=== PATIENT | female | born 1990 | race Caucasian/White ===

== ENCOUNTER 2021-03-22 20:52 | Emergency (ER) | payer OTHER ==
--- NOTE | 2021-03-22 22:51 | EDM.PDOC ---
ED HPI GENERAL MEDICAL PROBLEM - General Chief Complaint: SHORT HAUL DRIVER Problem Stated Complaint: BLEEDING Time Seen by Provider: 03/22/21 21:25 Source of Information: Reports: Patient History Limitations: Reports: No Limitations - History of Present Illness INITIAL COMMENTS - FREE TEXT/NARRATIVE: Patient presented to the ED because of vaginal bleeding which started 3 days ago. She is passing out clots and heavy menses like bleeding. There is no dizziness. she has a miscarriage in October/November this year. There is no abdominal cramping or urinary symptoms. 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: Immunologic History: Reports: None Dermatologic History: Reports: Eczema - Infectious Disease History Infectious Disease History: Reports: Chicken Pox - Past Surgical History HEENT Surgical History: Reports: Oral Surgery Social & Family History - Family History Family Medical History: No Pertinent Family History - Tobacco Use Tobacco Use Status *Q: Unknown Ever Used Tobacco - Caffeine Use Caffeine Use: Reports: Soda Other Caffeine Use: MINIMAL ED ROS GENERAL - Review of Systems Review Of Systems: See Below Constitutional: Reports: No Symptoms HEENT: Reports: No Symptoms Respiratory: Reports: No Symptoms Cardiovascular: Reports: No Symptoms Endocrine: Reports: No Symptoms GI/Abdominal: Reports: No Symptoms : Reports: No Symptoms Musculoskeletal: Reports: No Symptoms Skin: Reports: No Symptoms Neurological: Reports: No Symptoms Psychiatric: Reports: No Symptoms ED EXAM, GENERAL - Physical Exam Exam: See Below Exam Limited By: No Limitations General Appearance: Alert, No Apparent Distress Ears: Normal External Exam, Normal Canal, Hearing Grossly Normal Nose: Normal Inspection, Normal Mucosa, No Blood Throat/Mouth: Normal Inspection, Normal Lips, Normal Teeth Head: Atraumatic, Normocephalic Neck: Normal Inspection, Supple, Non-Tender, Full Range of Motion Respiratory/Chest: No Respiratory Distress, Lungs Clear, Normal Breath Sounds Cardiovascular: Normal Peripheral Pulses, Regular Rate, Rhythm, No Edema GI/Abdominal: Normal Bowel Sounds, Soft, Non-Tender, No Organomegaly Back Exam: Normal Inspection, Full Range of Motion Extremities: Normal Inspection, Normal Range of Motion, Non-Tender Neurological: Alert, Oriented, CN II-XII Intact Psychiatric: Normal Affect Course - Vital Signs Text/Narrative:: Carboprost 250 mcg IM x1 Tranexamic acid 1gm IV not 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 Last Recorded V/S: Last Vital Signs Temp 36.4 C 03/22/21 23:30 Pulse 79 03/23/21 01:00 Resp 18 03/23/21 01:00 BP 133/90 03/23/21 01:00 Pulse Ox 99 03/23/21 01:00 - Orders/Labs/Meds Orders: Active Orders 24 hr Category Date Time Status Saline Lock Insert [OM.PC] Routine Oth 03/22/21 22:52 Ordered Labs: Laboratory Tests 03/22/21 03/22/21 Range/Units 21:30 21:30 WBC 6.9 (3.0-10.3) x10-3/uL RBC 4.44 (3.60-5.20) x10(6)uL Hgb 13.6 (11.4-15.5) g/dL Hct 40.2 (34.2-48.2) % MCV 90.6 (76.7-100.5) fL MCH 30.7 (23.9-33.9) pg MCHC 33.9 (31.9-34.8) g/dL RDW 12.3 (12.3-16.5) % Plt Count 213 (151-488) x10(3)uL MPV 8.6 (7.1-12.4) fL Neut % (Auto) 48.0 (30.8-76.2) % Lymph % (Auto) 42.2 (18.4-52.1) % [place] % (Auto) 7.5 (4.4-15.7) % Eos % (Auto) 2.2 (0.6-8.1) % Baso % (Auto) 0.1 L (0.2-1.5) % Neut # (Auto) 3.3 (1.5-6.3) x10-3/uL Lymph # (Auto) 2.9 (1.0-4.4) x10-3/uL [place] # (Auto) 0.5 (0.3-1.0) x10-3/uL Eos # (Auto) 0.1 (0.0-0.8) x10-3/uL Baso # (Auto) 0.0 (0.0-0.1) x10-3/uL HCG, Quant 3903 (<5) mIU/mL Meds: Medications Discontinued Medications Generic Name Dose Route Start Last Admin Trade Name Freq PRN Reason Stop Dose Admin Carboprost Tromethamine 250 mcg 03/23/21 00:18 03/23/21 00:24 Carboprost Tromethamine 250 Mcg/1 Ml Amp IM 03/23/21 00:19 250 mcg ONETIME ONE Administration Tranexamic Acid 1,000 mg/ 60 mls @ 200 mls/hr 03/22/21 22:52 03/23/21 00:29 Sodium Chloride IV 03/22/21 23:09 Not Given NOW STA Sodium Chloride 10 ml 03/22/21 22:52 Sodium Chloride 0.9% 10 Ml Syringe FLUSH ASDIRECTED PRN Keep Vein Open Departure - Departure Time of Disposition: 23:30 Disposition: Home, Self-Care 01 Condition: Good Clinical Impression: Miscarriage, Complete - Discharge Information Instructions: Miscarriage, [id number] Referrals: Andra Hagan, [facility] [Primary Care Provider] - Forms: ED Department Discharge Additional Instructions: Please read discharge instructions on miscarriage/Complete Call your OB tomorrow if the bleeding is still profusely,otherwise, keep your appointment to be seen on 03/30 - My Orders Last 24 Hours: My Active Orders 03/22/21 22:52 Saline Lock Insert [OM.PC] Routine - Assessment/Plan Last 24 Hours: My Active Orders 03/22/21 22:52 Saline Lock Insert [OM.PC] Routine
[2021-03-22] MEDS ORDERED: Sodium Chloride 0.9% 10 ML Syringe FLUSH PRN (22:52)
[2021-03-22] MEDS: Tranexamic Acid 1,000 MG in Sodium Chloride 0.9% 50 ML IV STA (23:07)
[2021-03-23] MEDS ORDERED: Carboprost Tromethamine 250 MCG/1 ML Amp IM ONE (00:18)
[2021-03-23] MEDS: Tranexamic Acid 1,000 MG in Sodium Chloride 0.9% 50 ML IV STA (00:29)
== END 2021-03-23 01:05 | disposition home or self-care (01) ==
LOC: FB.ED 20:52
DX: O03.9 Complete or unspecified spontaneous abortion without complication (principal)
CPT/HCPCS: 36415; 84702; 85025; 96372; 99284